=== PATIENT | male | born 1995 | race African-American/Black ===

== ENCOUNTER 2018-12-10 02:57 | Emergency (ER) | payer MEDICAID ==
[~2018-12-10] VITALS: Ht 167.6 cm; Wt 83.0 kg
[2018-12-10 05:12] LABS: CLARITY URINE CLEAR (CLEAR); COLOR URINE YELLOW (YELLOW); KETONES URINE NEGATIVE (NEGATIVE); LEUKOCYTE ESTERASE URINE NEGATIVE (NEGATIVE); NITRITE URINE NEGATIVE (NEGATIVE); OCCULT BLOOD URINE NEGATIVE (NEGATIVE); PH URINE 5.5 (4.5-8.0); PROTEIN URINE NEGATIVE (NEGATIVE); SPECIFIC GRAVITY URINE 1.024 (1.005-1.030); UROBILINOGEN URINE 0.2 E.U./dL (0.2-1.0)
[2018-12-10] MEDS ORDERED: IBUPROFEN 600MG TABLET PO ONE (07:00)
[2018-12-10 08:47] VITALS: BP 126/55
== END 2018-12-10 08:51 | disposition home or self-care (01) ==
LOC: ER 02:57
DX: N50.819 Testicular pain, unspecified (principal); N43.3 Hydrocele, unspecified; K40.90 Unilateral inguinal hernia, without obstruction or gangrene, not specified as recurrent
CPT/HCPCS: 76870; 81003; 87491; 87591; 93976; 99284

== ENCOUNTER 2020-08-16 12:43 | Emergency (ER) | payer MEDICAID ==
[~2020-08-16] VITALS: Ht 177.8 cm; Wt 69.0 kg
[2020-08-16 12:46] VITALS: BP 126/64
[2020-08-16] MEDS ORDERED: ACETAMINOPHEN 325MG TABLET PO ONE (14:15)
== END 2020-08-16 14:41 | disposition left against medical advice (07) ==
LOC: ER 12:43
DX: R10.0 Acute abdomen (principal); R03.0 Elevated blood-pressure reading, without diagnosis of hypertension
CPT/HCPCS: 99283

== ENCOUNTER 2020-12-07 15:14 | Emergency (ER) | payer MEDICAID, OTHER ==
[~2020-12-07] VITALS: Ht 182.9 cm; Wt 91.0 kg
[2020-12-07 15:30] VITALS: BP 124/77
[2020-12-07] MEDS ORDERED: LEVETIRACETAM 1000MG PREMIX 100 ML IV ONE (15:45)
[2020-12-07] MEDS ORDERED: SODIUM CHLORIDE 0.9% 1,000 ML IV ONE (15:45)
== END 2020-12-07 16:58 | disposition left against medical advice (07) ==
LOC: ER 15:14
DX: R56.9 Unspecified convulsions (principal)
CPT/HCPCS: 99283; J7030